=== PATIENT | female | born 1935 | race Caucasian/White ===

== ENCOUNTER → 2016-07-18 | Outpatient (CLI) | payer MEDICARE ==
[~2016-07-18] MED LIST: ADVI200C9 PO; AMLO5TAB96 PO; ASPI81 PO; BETAM.05%T TOP; CALTTAB5 PO; CRANPOW2 PO; CROM5.2S; CYAN1000P SQ; CYMB60CA PO; DIAZ5 PO; GLUC500C56 PO; TAB-TAB PO; TAMO20TA4 PO; VITA400C70 PO
[2016-07-18 09:24] LABS: AUTOMATED NEUTROPHIL # 2.4 TH/MM3 (1.8-7.7); BASOPHIL % 0.4 % (0.0-2.0); EOSINOPHIL % 0.3 % (0.0-4.0); HEMATOCRIT 41.2 % (35.0-46.0); HEMO FLAGS DIFF FINAL; LYMPH % 44.5 % (9.0-44.0); LYMPHOCYTE # 2.4 TH/MM3 (1.0-4.8); MEAN CELL VOLUME 94.1 FL (80.0-100.0); MEAN CORPUSCULAR HEMOGLOBIN 32.4 PG (27.0-34.0); MEAN CORPUSCULAR HGB CONC 34.4 % (32.0-36.0); MONO % 8.8 % (0.0-8.0); PLATELET COUNT 234 TH/MM3 (150-450); RED BLOOD COUNT 4.38 MIL/MM3 (4.00-5.30); RED CELL DISTRIBUTION WIDTH 13.3 % (11.6-17.2); WHITE BLOOD COUNT 5.3 TH/MM3 (4.0-11.0)
[2016-07-18 10:11] LABS: ANION GAP 5 MEQ/L (5-15); AST (GOT) 12 U/L (15-37); BICARBONATE 28.8 MEQ/L (21.0-32.0); BLOOD UREA NITROGEN 12 MG/DL (7-18); CHLORIDE 100 MEQ/L (98-107); GLOMERULAR FILTRATION RATE 55 ML/MIN (>89); GLUCOSE,FASTING 122 MG/DL (74-99); POTASSIUM 4.2 MEQ/L (3.5-5.1); SODIUM (NA) 134 MEQ/L (136-145)
[2016-07-18 10:40] LABS: ALKALINE PHOSPHATASE 69 U/L (45-117); ALT (GPT) 21 U/L (10-53); HDL CHOLESTEROL 76.5 MG/DL (40.0-60.0); LDL CHOLESTEROL 77 MG/DL (0-99); TOTAL BILIRUBIN ADULT 0.5 MG/DL (0.2-1.0)
[2016-07-18 16:15] LABS: HEMOGLOBIN A1a 0.8 %; HEMOGLOBIN A1b 1.7 %; HEMOGLOBIN Ao 84.9 %; HEMOGLOBIN LA1C 2.1 %; HEMOGLOBIN P3 3.7 %
== END ==
LOC: PLAB 07:30
PROVIDERS: ATTEND Family Medicine
DX: E78.5 Hyperlipidemia, unspecified (principal); I10 Essential (primary) hypertension; R73.01 Impaired fasting glucose; R53.83 Other fatigue
CPT/HCPCS: 36415; 80053; 80061; 82607; 83036; 84443; 85025

== ENCOUNTER → 2017-02-03 | Outpatient (CLI) | payer MEDICARE ==
[2017-02-03 09:22] LABS: AUTOMATED NEUTROPHIL # 2.6 TH/MM3 (1.8-7.7); BASOPHIL % 0.7 % (0.0-2.0); EOSINOPHIL % 0.4 % (0.0-4.0); HEMO FLAGS DIFF FINAL; LYMPH % 40.1 % (9.0-44.0); LYMPHOCYTE # 2.2 TH/MM3 (1.0-4.8); MEAN CELL VOLUME 95.7 FL (80.0-100.0); MEAN CORPUSCULAR HEMOGLOBIN 33.5 PG (27.0-34.0); MONO % 9.8 % (0.0-8.0); PLATELET COUNT 229 TH/MM3 (150-450); RED BLOOD COUNT 4.18 MIL/MM3 (4.00-5.30); RED CELL DISTRIBUTION WIDTH 13.7 % (11.6-17.2); WHITE BLOOD COUNT 5.4 TH/MM3 (4.0-11.0)
[2017-02-03 09:37] LABS: ANION GAP 9 MEQ/L (5-15); AST (GOT) 15 U/L (15-37); BLOOD UREA NITROGEN 13 MG/DL (7-18); CHLORIDE 101 MEQ/L (98-107); GLOMERULAR FILTRATION RATE 61 ML/MIN (>89); GLUCOSE,FASTING 128 MG/DL (74-99); SODIUM (NA) 138 MEQ/L (136-145)
[2017-02-03 09:39] LABS: ALT (GPT) 20 U/L (10-53)
[2017-02-03 09:48] LABS: ALKALINE PHOSPHATASE 67 U/L (45-117); HDL CHOLESTEROL 83.9 MG/DL (40.0-60.0); LDL CHOLESTEROL 60 MG/DL (0-99); TOTAL BILIRUBIN ADULT 0.6 MG/DL (0.2-1.0)
[2017-02-03 16:42] LABS: HEMOGLOBIN A1a 0.9 %; HEMOGLOBIN A1b 1.8 %; HEMOGLOBIN Ao 84.2 %; HEMOGLOBIN LA1C 2.1 %; HEMOGLOBIN P3 3.7 %
== END ==
LOC: PLAB 07:36
PROVIDERS: ATTEND Family Medicine
DX: E78.5 Hyperlipidemia, unspecified (principal); R73.01 Impaired fasting glucose; R53.83 Other fatigue
CPT/HCPCS: 36415; 80053; 80061; 83036; 84443; 85025

== ENCOUNTER → 2017-08-03 | Outpatient (CLI) | payer MEDICARE ==
[2017-08-03 10:22] LABS: AUTOMATED NEUTROPHIL # 2.7 TH/MM3 (1.8-7.7); BASOPHIL % 0.2 % (0.0-2.0); EOSINOPHIL % 0.3 % (0.0-4.0); HEMATOCRIT 41.3 % (35.0-46.0); HEMOGLOBIN 14.1 GM/DL (11.6-15.3); LYMPH % 43.1 % (9.0-44.0); LYMPHOCYTE # 2.5 TH/MM3 (1.0-4.8); MEAN CELL VOLUME 94.6 FL (80.0-100.0); MEAN CORPUSCULAR HEMOGLOBIN 32.4 PG (27.0-34.0); MEAN CORPUSCULAR HGB CONC 34.3 % (32.0-36.0); MEAN PLATELET VOLUME 7.9 FL (7.0-11.0); MONOCYTE # 0.6 TH/MM3 (0-0.9); NEUT % 46.4 % (16.0-70.0); PLATELET COUNT 220 TH/MM3 (150-450); RED BLOOD COUNT 4.36 MIL/MM3 (4.00-5.30); RED CELL DISTRIBUTION WIDTH 13.4 % (11.6-17.2); WHITE BLOOD COUNT 5.8 TH/MM3 (4.0-11.0)
[2017-08-03 10:35] LABS: AST (GOT) 14 U/L (15-37); BLOOD UREA NITROGEN 15 MG/DL (7-18); CALCIUM 9.9 MG/DL (8.5-10.1); CHLORIDE 104 MEQ/L (98-107); CREATININE 1.01 MG/DL (0.50-1.00); GLOMERULAR FILTRATION RATE 52 ML/MIN (>89); GLUCOSE,FASTING 125 MG/DL (74-99); SODIUM (NA) 140 MEQ/L (136-145)
[2017-08-03 10:36] LABS: CHOLESTEROL 159 MG/DL (120-200)
[2017-08-03 10:47] LABS: ALKALINE PHOSPHATASE 71 U/L (45-117); ALT (GPT) 20 U/L (10-53); CHOLESTEROL/ HDL RATIO 2.15 RATIO; HDL CHOLESTEROL 73.7 MG/DL (40.0-60.0); LDL CHOLESTEROL 66 MG/DL (0-99); TOTAL BILIRUBIN ADULT 0.6 MG/DL (0.2-1.0); TOTAL PROTEIN 7.3 GM/DL (6.4-8.2); TRIGLYCERIDES 98 MG/DL (42-150)
[2017-08-03 15:52] LABS: HEMOGLOBIN A1C 6.7 % (4.3-6.0)
== END ==
LOC: PLAB 07:54
PROVIDERS: ATTEND Family Medicine
DX: E55.9 Vitamin D deficiency, unspecified (principal); E78.5 Hyperlipidemia, unspecified; R73.01 Impaired fasting glucose; R53.83 Other fatigue
CPT/HCPCS: 36415; 80053; 80061; 82306; 83036; 84443; 85025